=== PATIENT | female | born 1955 | race African-American/Black ===

== ENCOUNTER → 2017-08-05 | Outpatient (CLI) | payer BC, OTHER ==
--- NOTE | 2017-08-05 15:22 | XCELERA REPORT ---
[address] [address] Lower Extremity Venous Evaluation Name: CARI GOINS Age: 62 yrs Gender: Female : 1955 Patient Status: Outpatient Patient Location: Study Date: 08/05/2017 02:32 PM Procedure: Color flow and duplex imaging of the veins of the right lower extremity as well as the left Common Femoral vein. Reason For Study: RLE PAIN AND SWELLING Ordering Physician: OSKAR TOURE Performed By: Eloisa Asencio Right Sided Venous Evaluation Normal vessel filling wall to wall, compression and augmentation as well as Colour flow down to the infrageniculate veins. Left Sided Venous Evaluation The left common femoral vein is fully compressible. Spontaneous and phasic flow is present in the left common femoral vein. Interpretation Summary No duplex evidence of DVT or obstruction in the right lower extremity nor in the left Common Femoral vein. : OSKAR TOURE > Mauricio Ruiz
== END ==
LOC: SP 14:03
PROVIDERS: ATTEND Orthopaedic Surgery Sports Medicine
DX: M79.661 Pain in right lower leg (principal); R60.9 Edema, unspecified
CPT/HCPCS: 93971

== ENCOUNTER 2019-06-23 12:39 | Day surgery (SDC) | payer MEDICARE, OTHER ==
[2019-06-23] MEDS ORDERED: BUPIVACAINE HCL 0.5 % INJ/PF 30 ML SDV ONE (13:03)
[2019-06-23] MEDS ORDERED: LIDOCAINE 1% INJ-PF (10 MG/ML) 30 ML SDV ONE (13:03)
[2019-06-23] MEDS ORDERED: METHYLPREDNISOLONE ACETATE INJ 40 MG/1 ML ML ONE (13:03)
[2019-06-23] MEDS ORDERED: LIDOCAINE 2% INJ (20 MG/ML) 20 ML MDV ONE (13:03)
[2019-06-23] MEDS ORDERED: FENTANYL CITRATE INJ/PF 100 MCG/2 ML AMPUL ONE (14:28)
[2019-06-23] MEDS ORDERED: MIDAZOLAM 2 MG/2 ML INJ ONE (14:28)
[2019-06-23 15:50] VITALS: BP 149/73
--- NOTE | 2019-06-23 16:26 | Operative Report ---
KNEE RADIOFREQUENCY PROCEDURE: 1. Superolateral genicular branch from the vastus lateralis 2. Superomedial genicular branch from the vastus medialis 3. Inferomedial genicular branch from the saphenous nerve DATE OF PROCEDURE: [ 06/23/2019] ANESTHESIA: [local and IV fentanyl (200mcg) and versed (2mg) ] COMPLICATIONS: [ none] PROCEDURE IN DETAIL: Hx/PE/meds/allergies/applicable labs reviewed. No changes and no contraindications were found. Full description of the procedure was provided including benefits as well as possible complications including transient increased pain, stomach irritation, mood alteration, transient weakness or parasthesias as well as more serious nerve injury, bleeding, infection or allergic reaction. Informed consent was obtained and documented. The patient was brought to the procedure room and placed on the exam table in a comfortable supine position. The place for needle placement was obtained by manual palpation with radiographic confirmation. The sterile field was prepared by chloroprep and sterile drapes. Local anesthesia superficial and deep was provided by local infiltration of [1% lidocaine ]. A 17g 50mm radiofrequency introducer needle with a 4 mm active tip was placed overlying the Right knee joint and using fluoroscopic guidance the needle was advanced to a bony endpoint on the superiolateral portion of the femoral condyle of the Right knee. A second needle was advanced to a bony endpoint on the superiomedial portion of the femoral condyle. A third needle was then placed over the inferiomedial portion of the tibial condyle until a bony endpoint was met. Attempted aspiration yielded no blood. Lateral x-ray views showed all the needles at 50% depth of the femur and tibia. Motor stimulation was tested at 2.0 volts with no leg movement. Images were saved in AP and lateral. A mixture consisting of [ 2% lidocaine] was slowly injected. Then a radiofrequency ablation of each of the geniculate nerves were done at 80 degrees Celsius for 2 minutes and 30 seconds each. The needles were withdrawn. The patient tolerated the procedure well. After observation the patient was discharged with instructions and follow up. They were also provided contact information to call regarding any concerning symptoms or questions. IMPRESSION: 1. Successful geniculate knee radiofrequency ablation was performed. 2. RTC in [6 ] week(s).
== END 2019-06-23 15:55 | disposition home or self-care (01) ==
LOC: RAD 12:39
PROVIDERS: ATTEND Student in an Organized Health Care Education/Training Program
DX: G89.29 Other chronic pain (principal); M25.561 Pain in right knee
CPT/HCPCS: 82962; 64640 ×3; 99152; 99153; J2250; J3490 ×3; J3010; J1030

== ENCOUNTER 2019-11-26 07:28 | Day surgery (SDC) | payer MEDICARE, OTHER ==
[~2019-11-26 07:28] MED LIST: CHONDR SU A NA/HYALUR INTRAOC KIT (SURGICARE) ONE; EPINEPHRINE INJ/PF 1 MG/1 ML AMPULE ONE; FENTANYL CITRATE INJ/PF 100 MCG/2 ML AMPUL ONE; KETOROLAC TROMETHAMINE 0.45% 4 DROP/0.4 ML DROPERETTE OS PRN; LIDOCAINE 1% INJ-PF (10 MG/ML) 30 ML SDV ONE; LIDOCAINE 1%/PHENYLEPHRINE 1.5% 1 ML VIAL ONE; MIDAZOLAM 2 MG/2 ML INJ ONE
[2019-11-26] MEDS: CYCLOPENTOLATE 0.2%/PHENYLEPHRINE 1% OPH SOLN 2 ML OS PRN ×3 (08:11→08:30)
[2019-11-26] MEDS: TROPICAMIDE 1% OPH SOLN 15 ML OS PRN ×3 (08:11→08:30)
[2019-11-26] MEDS: BESIFLOXACIN HCL 0.6% OPH SUSP 5 ML BOTTLE OS PRN ×4 (08:12→08:55)
[2019-11-26] MEDS: TETRACAINE HCL 0.5% OPH SOLN 4 ML OS PRN ×3 (08:13→08:33)
[2019-11-26] MEDS: DORZOLAMIDE HCL 2%/TIMOLOL MALEAT 0.5% OPH SOLN 10 ML OS PRN ×2 (08:55)
--- NOTE | 2019-11-26 13:53 | Operative Report ---
Operative Report-[facility] Operative Report: DATE OF SURGERY: 11/26/19 PREOPERATIVE DIAGNOSIS: Cataracts, left eye POSTOPERATIVE DIAGNOSIS: Cataract, left eye OPERATION: Cataract extraction with insertion of an IOL of the left eye. Intraocular Lens Model: [20.5 sn60wf] Reason for surgery was difficulty seeing words on the television SURGEON: Mohsen Narvaez MD ANESTHESIA: Topical PROCEDURE: After obtaining appropriate consent, the patient's left eye was prepped and draped in a sterile fashion as well as the surgeon in the sterile manner and cataract surgery was started. First a paracentesis blade was used to make a side-port incision. Viscoelastic was used to inflate the anterior chamber. Next a 2.4 mm incision was made with a 2.4 mm blade, clear corneal temporarily. A continuous capsulorrhexis was made using a cystotome and Utrata forceps. Following this hydrodissection was carried out to make the lens fully loose and mobile and it was rotated 90 degrees. Following this, a divide and conquer technique was used to phacoemulsify the lens. The remaining cortex was removed with an irrigation/aspiration. Provisc was instilled into the capsular bag to inflate the bag.The intraocular lens was placed. The remaining viscoelastic material was removed with irrigation/aspiration. Following this, the incision was found to be watertight. Besivance and Cosopt was instilled into the eye and a protective shield was placed over the eye. The patient was returned to the postoperative recovery in a stable condition.
== END 2019-11-26 09:39 | disposition home or self-care (01) ==
LOC: SC 07:28
PROVIDERS: ATTEND Internal Medicine
DX: H25.813 Combined forms of age-related cataract, bilateral (principal); I10 Essential (primary) hypertension; Z86.73 Personal history of transient ischemic attack (TIA), and cerebral infarction without residual deficits; E11.9 Type 2 diabetes mellitus without complications; E66.9 Obesity, unspecified
CPT/HCPCS: 66984; 82962; V2632; J2250; J3490 ×3; A9270; J0171; J3010; 142

== ENCOUNTER 2019-12-24 08:46 | Day surgery (SDC) | payer MEDICARE, OTHER ==
[~2019-12-24 08:46] MED LIST changes: -FENTANYL CITRATE INJ/PF 100 MCG/2 ML AMPUL ONE; +KETOROLAC TROMETHAMINE 0.45% 4 DROP/0.4 ML DROPERETTE OD PRN; -KETOROLAC TROMETHAMINE 0.45% 4 DROP/0.4 ML DROPERETTE OS PRN; -LIDOCAINE 1% INJ-PF (10 MG/ML) 30 ML SDV ONE; -MIDAZOLAM 2 MG/2 ML INJ ONE
[2019-12-24] MEDS ORDERED: MIDAZOLAM 2 MG/2 ML INJ ONE (09:26)
[2019-12-24] MEDS ORDERED: ONDANSETRON HCL INJ/PF 4 MG/2 ML SDV ONE (09:26)
[2019-12-24] MEDS ORDERED: FENTANYL CITRATE INJ/PF 100 MCG/2 ML AMPUL ONE (09:26)
[2019-12-24] MEDS: TROPICAMIDE 1% OPH SOLN 15 ML OD PRN ×3 (09:45→10:05)
[2019-12-24] MEDS: CYCLOPENTOLATE 0.2%/PHENYLEPHRINE 1% OPH SOLN 2 ML OD PRN ×3 (09:45→10:05)
[2019-12-24] MEDS: TETRACAINE HCL 0.5% OPH SOLN 4 ML OD PRN ×3 (09:45→10:18)
[2019-12-24] MEDS: BESIFLOXACIN HCL 0.6% OPH SUSP 5 ML BOTTLE OD PRN ×4 (09:45→10:40)
[2019-12-24] MEDS: DORZOLAMIDE HCL 2%/TIMOLOL MALEAT 0.5% OPH SOLN 10 ML OD PRN ×2 (10:40)
--- NOTE | 2019-12-25 07:36 | Operative Report ---
Operative Report-[facility] Operative Report: DATE OF SURGERY: 12/24/2019 PREOPERATIVE DIAGNOSIS: Cataract, right eye POSTOPERATIVE DIAGNOSIS: Cataract, right eye OPERATION: Cataract extraction with insertion of an toric IOL of the right eye. Intraocular Lens Model: [20.5 sn6at3 rotated to 72 degrees] Patient underwent surgery for difficulty reading small print SURGEON: Mohsen Narvaez MD ANESTHESIA: Topical PROCEDURE: After obtaining appropriate consent, the patient's right eye was prepped and draped in a sterile fashion as well as the surgeon in the sterile manner and cataract surgery was started. First a paracentesis blade was used to make a side-port incision. Viscoelastic was used to inflate the anterior chamber. Next a 2.4 mm incision was made with a 2.4 mm blade, clear corneal temporarily. A continuous capsulorrhexis was made using a cystotome and Utrata forceps. Following this hydrodissection was carried out to make the qiana fully loose and mobile and it was rotated. Following this, a divide and conquer technique was used to phacoemulsify the qiana. The remaining cortex was removed with an irrigation/aspiration. Provisc was instilled into the capsular bag to inflate the bag. The intraocular lens was placed. The remaining viscoelastic material was removed with irrigation/aspiration. Following this, the incision was found to be watertight. Besivance and Cosopt was instilled into the eye and a protective shield was placed over the eye. The patient was reurned to the postoperative recovery in a stable condition.
== END 2019-12-24 13:06 | disposition home or self-care (01) ==
LOC: SC 08:46
PROVIDERS: ATTEND Internal Medicine
DX: H25.811 Combined forms of age-related cataract, right eye (principal); E11.9 Type 2 diabetes mellitus without complications; E78.00 Pure hypercholesterolemia, unspecified; I10 Essential (primary) hypertension; Z86.73 Personal history of transient ischemic attack (TIA), and cerebral infarction without residual deficits; Z79.82 Long term (current) use of aspirin; Z79.4 Long term (current) use of insulin; Z79.899 Other long term (current) drug therapy; Z79.84 Long term (current) use of oral hypoglycemic drugs; Z79.02 Long term (current) use of antithrombotics/antiplatelets
CPT/HCPCS: 66984; 82962; J2250; J3490 ×2; A9270; J0171; J3010; J2405; 142

== ENCOUNTER 2020-03-22 08:32 | Day surgery (SDC) | payer MEDICARE, OTHER ==
[2020-03-22] MEDS ORDERED: LIDOCAINE 2% INJ (20 MG/ML) 20 ML MDV ONE (09:01)
[2020-03-22] MEDS ORDERED: BUPIVACAINE HCL 0.5 % INJ/PF 30 ML SDV ONE (09:01)
[2020-03-22] MEDS ORDERED: METHYLPREDNISOLONE ACETATE INJ 40 MG/1 ML ML ONE (09:01)
[2020-03-22] MEDS ORDERED: LIDOCAINE 1% INJ-PF (10 MG/ML) 30 ML SDV ONE (09:02)
[2020-03-22] MEDS ORDERED: MIDAZOLAM 2 MG/2 ML INJ ONE (09:03)
[2020-03-22] MEDS ORDERED: FENTANYL CITRATE INJ/PF 100 MCG/2 ML AMPUL ONE (09:03)
--- NOTE | 2020-03-22 10:03 | Operative Report ---
KNEE RADIOFREQUENCY PROCEDURE: 1. Superolateral genicular branch from the vastus lateralis 2. Superomedial genicular branch from the vastus medialis 3. Inferomedial genicular branch from the saphenous nerve DATE OF PROCEDURE: [ 03/22/20 ] ANESTHESIA: [local, IV fentanyl and midazolam] COMPLICATIONS: [ none] PROCEDURE IN DETAIL: Hx/PE/meds/allergies/applicable labs reviewed. No changes and no contraindications were found. Full description of the procedure was provided including benefits as well as possible complications including transient increased pain, stomach irritation, mood alteration, transient weakness or parasthesias as well as more serious nerve injury, bleeding, infection or allergic reaction. Informed consent was obtained and documented. The patient was brought to the procedure room and placed on the exam table in a comfortable supine position. The place for needle placement was obtained by manual palpation with radiographic confirmation. The sterile field was prepared by chloroprep and sterile drapes. Local anesthesia superficial and deep was provided by local infiltration of [ 1% lidocaine]. A 17g 75mm radiofrequency introducer needle with a 4 mm active tip was placed overlying the Right knee joint and using fluoroscopic guidance the needle was advanced to a bony endpoint on the superiolateral portion of the femoral condyle of the Right knee. A second needle was advanced to a bony endpoint on the superiomedial portion of the femoral condyle. A third needle was then placed over the inferiomedial portion of the tibial condyle until a bony endpoint was met. Attempted aspiration yielded no blood. Lateral x-ray views showed all the needles at 50% depth of the femur and tibia. Motor stimulation was tested at 2.0 volts with no leg movement. Images were saved in AP and lateral. [2% lidocaine ] was slowly injected. Then a radiofrequency ablation of each of the geniculate nerves were done at 80 degrees Celsius for 2 minutes and 30 seconds each. A mixture of sensorcain and depomedrol was injected at each site. The needles were withdrawn. The patient tolerated the procedure well. After observation the patient was discharged with instructions and follow up. They were also provided contact information to call regarding any concerning symptoms or questions. IMPRESSION: 1. Successful geniculate knee radiofrequency ablation was performed. 2. The patient has f/u in clinic tomorrow.
[2020-03-22 11:18] VITALS: BP 134/63
== END 2020-03-22 10:40 | disposition home or self-care (01) ==
LOC: RAD 08:32
PROVIDERS: ATTEND Student in an Organized Health Care Education/Training Program
DX: M17.11 Unilateral primary osteoarthritis, right knee (principal); M25.561 Pain in right knee
CPT/HCPCS: 82962; 64624; J2250; J3490 ×3; J3010; J1030